=== PATIENT | female | born 1975 | race African-American/Black ===

== ENCOUNTER 2022-10-09 07:00 | Emergency (ER) | payer MEDICAID ==
[~2022-10-09] VITALS: Ht 167.6 cm; Wt 59.0 kg
[2022-10-09] MEDS ORDERED: MORPHINE SULFATE 4 MG/ML CPJ (NOT FOR IM USE) IV STA (07:24)
[2022-10-09] MEDS ORDERED: PANTOPRAZOLE SODIUM 40 MG/VIAL IV STA (07:24)
[2022-10-09] MEDS ORDERED: ONDANSETRON HCL 4MG/2ML INJ IV STA (07:24)
[2022-10-09] MEDS ORDERED: SODIUM CHLORIDE 0.9% 1,000 ML IV ONE (07:30)
[2022-10-09 08:48] LABS: BASOPHILS % 0.5 % (0.0-2.0); HEMATOCRIT. 33.7 % (36.0-48.0); HEMOGLOBIN. 10.9 g/dL (12.0-16.0); LYMPHOCYTES % 7.5 % (20.0-50.0); MEAN CORPUSCULAR HEMOGLOBIN 25.5 pg (28.0-32.0); MEAN CORPUSCULAR VOLUME 79.2 fL (81.0-99.0); MEAN PLATELET VOLUME 8.2 fl (7.4-10.4); MONOCYTES % 3.7 % (2.0-8.0); NEUTROPHILS % 88.3 % (40.0-76.0); PLATELET 435 x1000/uL (130-400); RED BLOOD CELL COUNT 4.25 mill/uL (4.2-5.4)
[2022-10-09 09:01] LABS: CHLORIDE 108 mEq/L (98-107)
[2022-10-09 09:10] LABS: ETHANOL BLOOD < 10 mg/dL
[2022-10-09] MEDS ORDERED: POTASSIUM CHLORIDE 20MEQ TABLET SR PO ONE (09:15)
[2022-10-09] MEDS ORDERED: PROT40 MT (09:19)
[2022-10-09] MEDS ORDERED: L25 MT (09:19)
[2022-10-09] MEDS ORDERED: ONDA4TAB50 MT (09:19)
[2022-10-09 10:37] VITALS: BP 132/68
== END 2022-10-09 10:39 | disposition home or self-care (01) ==
LOC: ER 07:00
DX: K29.20 Alcoholic gastritis without bleeding (principal); E87.6 Hypokalemia; F41.9 Anxiety disorder, unspecified; F10.10 Alcohol abuse, uncomplicated; Y90.0 Blood alcohol level of less than 20 mg/100 ml
CPT/HCPCS: 36415; 71045; 76705; 80053; 80320; 83690; 83880; 84484; 85025; 93005; 99285; J7030; G0480